=== PATIENT | female | born 1985 | race Caucasian/White ===

== ENCOUNTER 2024-05-08 11:42 | Emergency (ER) | payer OTHER ==
[2024-05-08 11:53] VITALS: BP 120/79; PULSE 91; RESP 20; TEMP 97.6; BMI 25.5
[2024-05-08] MEDS ORDERED: ACETAMINOPHEN INJECTION 100 ML ONE (13:15)
[2024-05-08] MEDS: ACETAMINOPHEN 1000 MG/100 ML BAG IVPB ONE (13:20)
[2024-05-08] MEDS: SODIUM CHLORIDE 0.9% 500 ML INFUS.BAG IV ONE (13:20)
[2024-05-08 13:51] LABS: EPI CELLS >36 /uL (0-25.1); HYALINE CASTS 1 /uL (0-3.1); PH,URINE 7.5 (5.0-8.0); URINE APPEARANCE CLEAR; URINE BACTERIA 1118 /uL (0-1359); URINE BILIRUBIN NEGATIVE (NEGATIVE); URINE COLOR YELLOW; URINE GLUCOSE (UA) NEGATIVE (NEGATIVE); URINE KETONE NEGATIVE (NEGATIVE); URINE LEUK ESTERASE 3+ (NEGATIVE); URINE NITRITE NEGATIVE (NEGATIVE); URINE PROTEIN NEGATIVE (NEGATIVE); URINE RBC 9 /uL (0-23.9); URINE UROBILINOGEN 0.2 mg/dL (0.2-1.0); URINE WBC 85 /uL (0-25.8)
[2024-05-08 14:12] LABS: POTASSIUM 4.4 mmol/L (3.5-5.1)
[2024-05-08 14:13] LABS: BASO % 0.9 % (0-2.0); EOS % 0.3 % (0-4.5); HEMATOCRIT 37.5 % (32.4-45.2); HEMOGLOBIN 12.2 GM/dL (10.7-15.3); LYMPH % 39.1 % (8-40); MCH 26.1 pg (25.7-33.7); MCHC 32.5 g/dl (32.0-36.0); MEAN CELL VOLUME 80.2 fl (80-96); MEAN PLT VOLUME 7.4 fl (7.5-11.1); MONO % 6.5 % (3.8-10.2); NEUT % 53.2 % (42.8-82.8); PLATELET COUNT 314 10^3/uL (134-434); RBC 4.68 M/mm3 (3.60-5.2); RDW 14.5 % (11.6-15.6); WHITE BLOOD COUNT 6.5 K/mm3 (4.0-10.0)
[2024-05-08 14:15] LABS: CALCIUM 9.3 mg/dL (8.5-10.1)
[2024-05-08 14:16] LABS: ALBUMIN 3.8 g/dl (3.4-5.0); BLOOD UREA NITROGEN 7.4 mg/dL (7-18)
[2024-05-08 14:19] LABS: CREATININE 0.6 mg/dL (0.55-1.3)
[2024-05-08 14:21] LABS: BILIRUBIN,TOTAL 0.5 mg/dL (0.2-1); TOT PROT 7.4 g/dl (6.4-8.2)
[2024-05-08 15:07] LABS: HIV INTERPRETATION NEGATIVE (NEGATIVE)
== END 2024-05-08 16:05 | disposition home or self-care (01) ==
LOC: JER 11:42
PROC: 3E033NZ Introduction of Analgesics, Hypnotics, Sedatives into Peripheral Vein, Percutaneous Approach (ICD-10-PCS; principal; 2024-05-08)
DX: N83.201 Unspecified ovarian cyst, right side (principal); N30.00 Acute cystitis without hematuria; D25.9 Leiomyoma of uterus, unspecified
CPT/HCPCS: 36415; 74177-TC; 76830-TC; 80053; 81003; 84703; 85025; 86803; 87086; 87389; 99285-25; J0131

== ENCOUNTER 2024-11-14 12:29 | Emergency (ER) | payer OTHER ==
[2024-11-14 12:37] VITALS: BP 132/86; PULSE 108; RESP 16; TEMP 98.5; BMI 26.2
[2024-11-14] MEDS ORDERED: HIV POST EXPOSURE PROPHYLAXIS KIT PO ONE (13:50)
[2024-11-14 14:37] LABS: SYPHILIS W/ RPR CONF NON-REACTIVE (NONREACTIVE)
[2024-11-14 15:05] LABS: HCV DIAGNOSTIC IN-HOUSE W/RFLX NON-REACTIVE (NONREACTIVE); HIV INTERPRETATION NEGATIVE (NEGATIVE)
[2024-11-14 15:05] LABS: HIV INTERPRETATION NEGATIVE (NEGATIVE)
== END 2024-11-14 14:31 | disposition home or self-care (01) ==
LOC: JERFT 12:29
DX: Z11.3 Encounter for screening for infections with a predominantly sexual mode of transmission (principal); R00.0 Tachycardia, unspecified
CPT/HCPCS: 36415; 86780; 86803; 87389; 87491; 87591; 87661; 99283-25

== ENCOUNTER 2024-12-29 21:19 | Emergency (ER) | payer OTHER ==
[2024-12-29 21:24] VITALS: BP 116/80; PULSE 87; RESP 17; TEMP 98.6; BMI 25.4
[2024-12-29] MEDS ORDERED: FAMOTIDINE 20 MG/50 ML IVPB 20 MG/50 ML MG IVPB ONE (21:53)
[2024-12-29] MEDS ORDERED: ONDANSETRON 4 MG/2 ML VIAL ONE (21:53)
[2024-12-29] MEDS: FAMOTIDINE 20 MG/50 ML IVPB 20 MG/50 ML MG IVPB ONE (22:16)
[2024-12-29] MEDS: LACTATED RINGERS SOLUTION 1000 ML INFUS.BAG IV ONE (22:16)
[2024-12-29] MEDS: ONDANSETRON 4 MG/2 ML VIAL IVPUSH ONE (22:16)
[2024-12-29 22:22] LABS: ABSOLUTE IMMATURE GRANULOCYTES 0.01 x10^3/uL (0.0-0.031); BASOPHILS # 0.02 x10^3/uL (0.01-0.08); EOSINOPHIL % 1.2 % (0.7-5.8); EOSINOPHILS # 0.08 x10^3/uL (0.04-0.36); HEMATOCRIT 35.5 % (34.1-44.9); HEMOGLOBIN 10.8 g/dL (11.2-15.7); MCHC 30.4 g/dl (32.2-35.5); MEAN CELL VOLUME 79.1 fl (79.4-94.8); MEAN PLT VOLUME 9.1 fl (9.4-12.3); MONOCYTE # 0.56 x10^3/uL (0.24-0.86); MONOCYTE % 8.2 % (4.7-12.5); PLATELET COUNT 335 x10^3/uL (182-369); RDW 16.4 % (12.1-16.8)
[2024-12-29 22:48] LABS: POTASSIUM 4.2 mmol/L (3.5-5.1)
[2024-12-29 22:50] LABS: CALCIUM 9.1 mg/dL (8.5-10.1)
[2024-12-29 22:51] LABS: ALBUMIN 3.4 g/dl (3.4-5.0)
[2024-12-29 22:54] LABS: CREATININE 0.7 mg/dL (0.55-1.3)
[2024-12-29 22:55] LABS: BILIRUBIN,TOTAL 0.4 mg/dL (0.2-1)
[2024-12-29] MEDS ORDERED: MAG HYDROX/AL HYDROX/SIMETH 30 ML UNIT-DOSE CUP ONE (22:58)
[2024-12-29] MEDS: MAG HYDROX/AL HYDROX/SIMETH 30 ML UNIT-DOSE CUP PO ONE (23:12)
[2024-12-29] MEDS: SUCRALFATE 1 GM/10 ML UNIT DOSE CUPS PO ONE (23:14)
[2024-12-29] MEDS ORDERED: DICYCLOMINE HCL 10 MG CAPSULE ONE (23:23)
[2024-12-29] MEDS: DICYCLOMINE HCL 20 MG TABLET PO ONE (23:30)
[2024-12-30] MEDS ORDERED: SUCRALFATE 1 GM/10 ML UNIT DOSE CUPS PO ONE (22:50)
== END 2024-12-29 23:33 | disposition home or self-care (01) ==
LOC: JER 21:19
PROC: 3E033GC Introduction of Other Therapeutic Substance into Peripheral Vein, Percutaneous Approach (ICD-10-PCS; principal; 2024-12-29)
PROC: 3E033GC Introduction of Other Therapeutic Substance into Peripheral Vein, Percutaneous Approach (ICD-10-PCS; 2024-12-29)
DX: R11.2 Nausea with vomiting, unspecified (principal); R10.12 Left upper quadrant pain; R19.7 Diarrhea, unspecified; T78.1XXA Other adverse food reactions, not elsewhere classified, initial encounter
CPT/HCPCS: 36415; 80053; 83690; 83735; 84703; 85025; 99284-25